=== PATIENT | female | born 1940 | race Caucasian/White ===

== ENCOUNTER → 2018-11-17 | Outpatient (CLI) | payer MEDICARE, OTHER ==
[~2018-11-17] MED LIST: LEXAPRO5 MG PO; LISINOPRIL2.5 MG PO; SYNTHROID88 MCG PO
--- NOTE | ~2018-11-17 | PAINCON ---
[address] [address] PAIN MANAGEMENT CONSULTATION Name: GHADA MATA Room: [facility].#: [id number] Admission: 11/17/18 Attend Phys: Osmel Dunham MD Discharge: Date of : 40 Report #: [id number] THIS REPORT FOR: //name// CC: Dina Dunham DATE OF SERVICE: 11/17/2018 CHIEF COMPLAINT: Spinal stenosis, low back. HISTORY OF PRESENT ILLNESS: The patient is a 78-year-old female who has been referred to the Pain Clinic for evaluation. States that she has pain and discomfort in her low back area. This has been ongoing for a number of years. Describes as a heavy throbbing pain. Pain radiates in her hips and radiates down into her legs. Right foot is involved with numbness. Rates it as a 2-3/10. Does impact the patient's driving. She has tried medications in the past. She has used ibuprofen. Notes some difficulty walking secondary to the pain. Notes when she is driving an annoying pins and needle sensation down in her legs. The patient has not had surgery on her back. PAST MEDICAL HISTORY: Thyroid disease, joint disease/arthritis, hypertension and hypothyroidism. MEDICATION ALLERGIES: SULFA. CURRENT MEDICATIONS: Ibuprofen, Lexapro 5 mg, Synthroid 0.8 mcg, lisinopril 2.5 mg. SOCIAL HISTORY: She is retired. PAIN CLINIC ASSESSMENT/PQRS: 1. Osteoarthritis in the knee. The patient is not being treated for rheumatoid arthritis. 2. Height 5 feet 6 inches, weight 161 pounds, BMI is 26. 3. Vital signs: Blood pressure 126/71, heart rate 77, respiratory rate 16, room air saturation 98%, temperature 97.6. 4. Pain intensity, 2-3/10. 5. Fall history: The patient has not fallen in the last 3 months. 6. Blood thinner. The patient is not on a blood thinning medication. 7. Hypertension. The patient states she is not being treated for hypertension. 8. Opioid greater than 6 weeks. 9. Risk assessment tool, low for opioid use. 10. Functional assessment tool. 11. Recreational drug use. The patient denies use of recreational drugs. 12. Tobacco: The patient [place] [address] PAIN MANAGEMENT CONSULTATION Name: GHADA MATA Room: [facility]#: [id number] Admission: 11/17/18 Attend Phys: Osmel Dunham MD Discharge: Date of : 40 Report #: [id number] PHYSICAL EXAMINATION: GENERAL: The patient is a well-developed, well-nourished white female. Appears her stated age. She is alert and oriented x 3. Her affect is appropriate. Speech is fluent. HEENT: Normocephalic, atraumatic. Extraocular eye muscles intact. Sclerae nonicteric. Mucous membranes are moist. NECK: Without adenopathy or JVD. HEART: Regular rate. ABDOMEN: Nontender. Bowel sounds present. EXTREMITIES: Upper extremity muscle strength is judged to be 5-/5 for the major muscle groups. Lower extremity muscle strength is judged to be 5-/5 for the major muscle groups in the lower extremity. The patient does have some perception of numbness and tingling in her right foot with pain radiating down in the L5-S1 dermatomal distribution. LABORATORY DATA: Ultrasound of abdomen dated 09/14/2018. MRI of lumbar spine x-ray without contrast dated, 09/08/2018: 1. L1-L2 disk bulge with annular fissure. Mild facet arthropathy, ligamentum flavum thickening. No significant spinal stenosis. 2. L2-L3 disk bulge with annular fissure. Mild facet arthropathy, ligamentum flavum thickening. Qilc-[id number] spinal and lateral recess stenosis. Mild left greater than right neural foraminal narrowing. 3. L3-L4 disk bulge with annular fissure. [id number]-[id number] facet arthropathy. Ligamentum flavum thickening, mild spinal and lateral recess stenosis. Mild bilateral neural foraminal narrowing. 4. L4-L5 disk bulge with annular fissure. Severe facet arthropathy. Ligamentum flavum thickening. Moderate spinal and lateral recess stenosis. Mild right greater than left neural foraminal narrowing. 5. L5-S1 disk bulge with annular fissure. Severe left greater than right facet arthropathy. Ligamentum flavum thickening. IMPRESSION: 1. Lumbar radiculopathy in the L5-S1 dermatomal distribution on the right. 2. Thyroid disease. 3. Joint disease/arthritis. 4. Hypertension. 5. Hypothyroidism. RECOMMENDATIONS: We discussed treatment options with the patient. Risks and benefits of an epidural steroid injection were discussed. They include but are not limited to infection, worsening pain, no improvement in pain, nerve damage, bleeding, possible spinal trauma. The patient elects to proceed. PROCEDURE NOTE: The patient was taken to the procedure [place] [address] PAIN MANAGEMENT CONSULTATION Name: GHADA MATA Room: [facility]#: [id number] Admission: 11/17/18 Attend Phys: Osmel Dunham MD Discharge: Date of : 40 Report #: [id number] assisted in getting on the examination table. A pillow was placed on her abdomen to bolster and improve positioning. Fluoroscopy with anterior and posterior as well as lateral viewing were implemented. The patient's back had been sterilely prepped with Betadine. This was allowed to dry. A 25-gauge needle was then advanced to this area. A 0.25% bupivacaine was infiltrated to numb the area. In the L5-S1 area, a 17-gauge Tuohy with loss of resistance technique was used to gain access to the epidural space. A right paramedian approach was initiated. A total of 80 mg Depo-Medrol, 40 mg triamcinolone and 2 mL of 0.25% bupivacaine was injected. The patient tolerated the procedure well. There were no complications. She remained in the Pain Clinic for an appropriate amount of time. She will follow up in the future as needed. We would like to thank you for letting us participate in her care. We hope she continues to improve. By: [id number]. Hamilton Dunham MD /denisha
== END ==
LOC: M.PC 10-20 08:00
DX: M54.17 Radiculopathy, lumbosacral region (principal); M48.061 Spinal stenosis, lumbar region without neurogenic claudication; M19.90 Unspecified osteoarthritis, unspecified site; I10 Essential (primary) hypertension; E03.9 Hypothyroidism, unspecified; E07.9 Disorder of thyroid, unspecified

== ENCOUNTER → 2018-12-20 | Outpatient (CLI) | payer MEDICARE, OTHER ==
[~2018-12-20] MED LIST changes: +HYDROCODON-ACE1 EAC7 PO; +MOBIC15 MG PO; +TRAMADOL 50 MG50 MG PO
--- NOTE | ~2018-12-20 | PAINCON ---
[address] [address] PAIN MANAGEMENT CONSULTATION Name: GHADA MATA Room: [facility].#: [id number] Admission: 12/20/18 Attend Phys: Osmel Dunham MD Discharge: Date of : 40 Report #: [id number] THIS REPORT FOR: //name// CC: LIYA West DATE OF SERVICE: 12/20/2018 CHIEF COMPLAINT: Spinal stenosis and low back pain. HISTORY: The patient is a 78-year-old female who has been seen in the Pain Clinic because of chronic pain. She finds that tramadol and hydrocodone have been beneficial. Mobic is helpful as well. She is not being treated for osteoarthritis or rheumatoid arthritis. She underwent an epidural steroid injection. She notes that her pain is a little better. She does continue to have some numbness in her right foot. She would like to undergo treatment of another injection in the low back area to see whether or not that would be more beneficial. She is having pain that is radiating down into her right foot and rates it as a 2-3 today. This does cause some problem with her driving. The pins and needle sensation are annoying. She is able to do this task without problems but would like to get rid of numbness and tingling sensation. She has not undergone surgery. ALLERGIES: SULFA. CURRENT MEDICATIONS: Ibuprofen, Lexapro 5 mg, Synthroid 0.8 mcg, lisinopril 2.5 mg. PAIN CLINIC ASSESSMENT/PQRS: 1. Osteoarthritis in the knee. She is not being treated for rheumatoid arthritis. 2. Height 5 feet 6 inches, weight 163 pounds, BMI is 26.3. 3. Vital signs: Blood pressure 150/82, heart rate 79, respiratory rate 16, room air saturation 98%, temperature 97.7. 4. Pain intensity: 5/10. 5. Fall history: The patient has not fallen in the last 3 months. 6. Blood thinner: The patient is not on a blood thinning medication. 7. Hypertension: The patient is being treated for hypertension. 8. Risk assessment tool: Low for opioid use. 9. Opioids greater than 6 weeks: The patient is using hydrocodone to help quell her pain. 10. Functional assessment tool. 11. Recreational drug use: The patient denies use of recreational drugs. 12. Tobacco: The [place] [address] PAIN MANAGEMENT CONSULTATION Name: GHADA MATA Room: [facility]#: [id number] Admission: 12/20/18 Attend Phys: Osmel Dunham MD Discharge: Date of : 40 Report #: [id number] PHYSICAL EXAMINATION: GENERAL: The patient is a well-developed, well-nourished white female. She appears her stated age. She is alert and oriented x 3. Affect is appropriate. Speech is fluent. HEENT: Normocephalic, atraumatic. Extraocular eye muscles intact. Sclerae nonicteric. Mucous membranes are moist. NECK: Without adenopathy or JVD. HEART: Regular rate. ABDOMEN: Nontender. Bowel sounds present. MUSCULOSKELETAL: Upper extremity muscle strength is judged to be 5-/5 for the major muscle groups in the upper extremity. Lower extremity muscle strength 5- for the major muscle groups in the lower extremity. The patient does have the perception of some weakness and tingling down involving the L5-S1 dermatomal distribution involving her right foot. IMPRESSION: 1. Lumbar radiculopathy with pain radiating down into the right foot with history of spinal stenosis. 2. Hypertension. 3. Hypothyroidism. RECOMMENDATIONS: We discussed treatment options with the patient. Risks and benefits of an epidural steroid injection were discussed. They include but are not limited to infection, worsening of pain, no improvement in pain, and the patient elects to proceed. PROCEDURE NOTE: The patient was taken to the procedure area. She was assisted in getting on the examination table. Her back was sterilely prepped with a Betadine solution. A pillow was placed under her abdomen to bolster improve positioning. Fluoroscopy using anterior, posterior as well as lateral viewing were implemented. The patient's low back area had been sterilely prepped with Betadine. At the L5-S1 area, 0.25% bupivacaine was infiltrated. A 17-gauge Tuohy with loss of resistance technique was used to gain access to the epidural space. There was no CSF, heme or paresthesia. A total of 80 mg Depo-Medrol, 40 mg triamcinolone and 2 mL of 0.25% bupivacaine was injected at the L4-L5 area. The patient's states after being in the room that the pain is more in the L4-L5 dermatomal distribution, so we will proceed with an injection in that area. The patient is back was infiltrated at the L4-L5 space. A 0.25% bupivacaine was infiltrated. A 17-gauge Tuohy with loss of resistance technique was used to gain access to the epidural space. There was no CSF, heme or paresthesia. A total of 80 mg Depo-Medrol, 40 mg triamcinolone and 2 mL of 0.25% bupivacaine was injected. The patient tolerated the procedure well. There were no complications. She remained in the Pain Clinic for an appropriate amount of time. She will call us if [place] [address] PAIN MANAGEMENT CONSULTATION Name: GHADA MATA Room: [facility]#: [id number] Admission: 12/20/18 Attend Phys: Osmel Dunham MD Discharge: Date of : 40 Report #: [id number] We would like to thank you for letting us participate in her care. We hope her pain continues to improve; it had decreased to 3 at the time of discharge. By: [id number]. Hamilton Dunham MD /nt
== END | disposition home or self-care (01) ==
LOC: M.PC 04:52
DX: M54.16 Radiculopathy, lumbar region (principal); G89.29 Other chronic pain; I10 Essential (primary) hypertension; E03.9 Hypothyroidism, unspecified; Z79.891 Long term (current) use of opiate analgesic; Z79.899 Other long term (current) drug therapy; Z88.2 Allergy status to sulfonamides; Z98.890 Other specified postprocedural states

== ENCOUNTER → 2019-06-06 | Outpatient (CLI) | payer MEDICARE, OTHER ==
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
== END | disposition home or self-care (01) ==
LOC: M.PC 05:11
DX: M54.16 Radiculopathy, lumbar region (principal); G89.29 Other chronic pain; I10 Essential (primary) hypertension; E03.9 Hypothyroidism, unspecified; F32.9 Major depressive disorder, single episode, unspecified; Z98.890 Other specified postprocedural states; Z79.899 Other long term (current) drug therapy; Z79.891 Long term (current) use of opiate analgesic; Z88.2 Allergy status to sulfonamides

== ENCOUNTER → 2019-07-06 | Outpatient (CLI) | payer MEDICARE, OTHER ==
--- NOTE | 2019-07-11 10:01 | PAINCON ---
[address] [address] PAIN MANAGEMENT CONSULTATION Name: GHADA MATA [id number] Admission: 07/06/19 Attend Phys: Osmel Dunham MD Discharge: Date of : 40 Report #: [id number] THIS REPORT FOR: //name// CC: Radha Dunham DATE OF SERVICE: 07/06/2019 The patient was seen on 07/06/2019 by Hamilton Dunham. PRIMARY CARE PHYSICIAN: Dr. Radha Kendall. CHIEF COMPLAINT: "I am going to go to [place] and my mid back and leg started to hurt again." HISTORY OF PRESENT ILLNESS: The patient is a 78-year-old female who has been followed in the pain clinic. She has undergone epidural steroid injections. She received an injection with good relief after the last visit. She had about 60% improvement. She is planning on going to [place] with some friends. She would like to proceed with another epidural steroid injection. There were no complications from the procedure. At this point, her pain is a 5/10. She has been using meloxicam and tramadol. She very rarely uses hydrocodone, but does use it if things are problematic. Notes that things that exacerbate her discomfort are the change in weather, walking, sitting, standing, going from a sitting to a standing position, bending and lifting. ALLERGIES: SULFA. CURRENT MEDICATIONS: Ibuprofen, Lexapro 5 mg, Synthroid 0.8 mcg, and lisinopril 2.5 mg. PAIN CLINIC ASSESSMENT/PQRS: 1. Osteoarthritis of the knee. 2. The patient is not being treated for rheumatoid arthritis. 3. Height 5 feet 6 inches, weight 163 pounds, and BMI of 26.4. 4. Vital Signs: Blood pressure 139/74, heart rate is 68, respiratory rate 16, room air saturation 98%, and temperature 97.8. 5. Pain intensity 10. 6. Fall history: The patient has not fallen in the last 3 months. 7. Blood thinner. The patient is not on a blood thinning medication. 8. Hypertension. The patient is being treated for hypertension. 9. Opioids greater than 6 weeks. The patient received medication from one source, pain clinic. 10. Risk assessment tool, low for opioid use. 11. [place] [address] PAIN MANAGEMENT CONSULTATION Name: GHADA MATA Room: [facility]#: [id number] Admission: 07/06/19 Attend Phys: Osmel Dunham MD Discharge: Date of : 40 Report #: [id number] 12. Recreational drug use: The patient denies. 13. Tobacco: The patient denies. 14. Alcohol: The patient denies frequent use of alcoholic beverages. PHYSICAL EXAMINATION: GENERAL: The patient is a well-developed, well-nourished white female. Appears her stated age of 78. She is alert and oriented x 3. Her affect is appropriate. Speech is fluent. HEENT: Normocephalic, atraumatic. Extraocular eye muscles intact. Sclerae nonicteric. Mucous membranes are moist. NECK: Without adenopathy or JVD. HEART: Regular rate. ABDOMEN: Nontender. Bowel sounds present. MUSCULOSKELETAL: Upper extremity muscle strength judged to be 5-/5 for the major muscle groups in the upper extremity. Lower extremity muscle strength judged to be 5-/5. The patient has pain and discomfort with tingling down in the L5-S1 dermatomal distribution involving her right foot. IMPRESSION: 1. Lumbar radiculopathy with pain radiating down the right foot with history of spinal stenosis. 2. Hypertension. 3. Hypothyroidism. 4. Depression. RECOMMENDATIONS: We discussed treatment options with the patient. Risks and benefits of an epidural steroid injection were discussed. They include but are not limited to infection, worsening of pain, no improvement in pain, bleeding, spinal headache, nerve damage and the patient elects to proceed. PROCEDURE NOTE: The patient was taken to the procedure area. She was then assisted in getting on examination table. Her back was sterilely prepped with a Betadine solution. Fluoroscopy in the L5-S1 area was used. The L5-S1 area was identified. A 0.25% bupivacaine using a 25-gauge needle was then used to anesthetize the area. A total of 80 mg Depo-Medrol, 40 mg triamcinolone and 2 mL of 0.25% bupivacaine was injected after the 17-gauge Tuohy had been advanced. The patient tolerated the procedure well. She remained in the pain clinic for an appropriate amount of time. We will follow up in the future as needed. We would like to thank you for letting us participate in her care. Hopefully, she will have a good time when [place] [address] PAIN MANAGEMENT CONSULTATION Name: GHADA MATA Room: [facility]#: [id number] Admission: 07/06/19 Attend Phys: Osmel Dunham MD Discharge: Date of : 40 Report #: [id number] We would like to thank you for letting us participate in her care. <ELECTRONICALLY SIGNED> By: Osmel Dunham MD 07/11/19 [id number]. Hamilton Dunham MD /nt
== END | disposition home or self-care (01) ==
LOC: M.PC 05:31
DX: M54.16 Radiculopathy, lumbar region (principal); G89.29 Other chronic pain; I10 Essential (primary) hypertension; E03.9 Hypothyroidism, unspecified; F32.9 Major depressive disorder, single episode, unspecified; Z98.890 Other specified postprocedural states; Z79.899 Other long term (current) drug therapy; Z88.2 Allergy status to sulfonamides

== ENCOUNTER → 2020-09-05 | Outpatient (CLI) | payer MEDICARE, OTHER ==
[~2020-09-05] MED LIST changes: +NEURONTIN 300M300 M2 PO
== END | disposition home or self-care (01) ==
LOC: M.PC 08:42
PROVIDERS: ATTEND Anesthesiology Pain Medicine
DX: M54.16 Radiculopathy, lumbar region (principal); I10 Essential (primary) hypertension; E03.9 Hypothyroidism, unspecified; F32.9 Major depressive disorder, single episode, unspecified; M19.90 Unspecified osteoarthritis, unspecified site; Z79.899 Other long term (current) drug therapy; Z98.890 Other specified postprocedural states